=== PATIENT | male | born 1960 | race Caucasian/White ===

== ENCOUNTER 2018-11-23 07:44 | Day surgery (SDC) | payer BC ==
[~2018-11-23 07:44] MED LIST: ACETAMINOPHEN 1,000 MG/100 ML BTL IV ONE
[2018-11-23] MEDS ORDERED: MIDAZOLAM HCL 2MG/2ML VIAL IV ONE (07:45)
[2018-11-23] MEDS ORDERED: FENTANYL PF 100MCG/2ML VIAL IV ONE (07:45)
[2018-11-23] MEDS ORDERED: PROPOFOL 10 MG/ML VIAL IV ONE (07:45)
[2018-11-23] MEDS ORDERED: LIDOCAINE 2% MDV (20MG/ML) 20ML VIAL IV ONE (07:45)
[2018-11-23] MEDS ORDERED: CEFAZOLIN 2 Gram 2 GM/50 ML BAG IVPB ONE (07:45)
[2018-11-23] MEDS ORDERED: BUPIVACAINE 0.5% (5MG/ML) PF 30ML VIAL SQ ONE (11:11)
[2018-11-23] MEDS ORDERED: LIDOCAINE 1% MPF 100MG/10ML STERILE-PAK AMPULE SQ ONE (11:12)
--- NOTE | 2018-11-27 21:31 | Operative Note ---
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 PROCEDURE: EXOSTECTOMY LEFT HALLUX WITH FUSION OF INTERPHALANGEAL JOINT OF LEFT HALLUX. ANESTHESIA: LOCAL WITH IV SEDATION. SURGEON: LILIAN HARP DPM INDICATIONS: The patient had chronic ulceration to the plantar medial aspect of the interphalangeal joint of the left great toe secondary to underlying bone hypertrophy. He has had previous exostectomy but had recurrent ulceration requiring further exostectomy with fusion of interphalangeal joint due to deformed joint with hallux interphalangeus and instability due to additional exostectomy required. X-ray exam consistent with hallux interphalangeus and hypertrophic bone to the plantar medial aspect of the head of the residual proximal phalanx of the left great toe. PROCEDURE IN DETAIL: The patient was brought in the O.R. suite and placed supine upon the O.R. table. After successful IV sedation was achieved, a hallux block of the left hallux was given with 20 mL of a 50:50 mixture of 1% Lidocaine plain and 0.5% Marcaine plain given after topical anesthesia and alcohol prep. Padding put about left ankle. Pneumatic cuff put in place. The left foot/ankle was prepped and draped in the usual sterile manner, exsanguinated with an Esmarch, and the tourniquet was raised to 250 mmHg. C-arm utilized to isolate cause of chronic ulceration, which is hypertrophic bone to the plantar medial aspect of the head of the proximal phalanx of the left great toe. A linear incision was outlined and made to the medial aspect of the interphalangeal joint left foot hallux, approximately 4 cm in length. Sharp and blunt dissection utilized to deepen the incision. All vital structures identified and retracted. A linear capsulotomy performed and reflected, exposing hypertrophic bone to the plantar medial aspect of the head of the proximal phalanx, which was removed with a power sagittal saw, cooled with saline. C-arm indicated appropriate removal of bone. Continued hallux interphalangeus noted. The adjacent surfaces of the interphalangeal joint were resected with the power sagittal saw parallel to each other and perpendicular to the weightbearing surface, cooled with saline. A K-wire from the Osteomed set was then driven under C-arm guidance through the distal phalanx, across the osteotomy into the proximal phalanx. Rectus position noted to the interphalangeal joint. Distal cortex was drilled and measured at 36 mm. One 3.0 mm x 36 mm headless cannulated Osteomed screw was driven in typical cannulated fashion. Good [id number] contact noted to fusion. Rectus hallux noted, proven by C-arm, wire removed. Residual bony spurs were removed with the power sagittal saw. No rough bony areas left. Wound flushed with copious amounts of sterile saline. Capsule and subcu closed in simple interrupted fashion with #3- 0 Vicryl. Skin closed in simple interrupted fashion with #3-0 nylon. A combination of Adaptic, 4 x 4's, four-inch Stephanie, and SHASHNAK wrap were applied. Tourniquet deflated to 0 mmHg. Hyperemic flush noted to digits. The patient tolerated the procedure well and was transferred to the Recovery Room in stable condition without complaint. He is to follow-up in the office in the next several days. He is to minimize ambulation with cane, walker, and crutches, take pain medications as prescribed. Contact me by cell phone as needed. JOB NUMBER: [id number] MTDD
== END 2018-11-23 13:00 | disposition home or self-care (01) ==
LOC: SUR 07:44
PROVIDERS: ATTEND Podiatrist
DX: L97.529 Non-pressure chronic ulcer of other part of left foot with unspecified severity (principal); I10 Essential (primary) hypertension; E78.00 Pure hypercholesterolemia, unspecified; E11.9 Type 2 diabetes mellitus without complications; Z68.36 Body mass index [BMI] 36.0-36.9, adult
CPT/HCPCS: 36416; 82948; J3490